=== PATIENT | male | born 1980 | race African-American/Black ===

== ENCOUNTER 2022-07-05 15:48 | Emergency (ER) | payer BC, SELFPAY ==
[2022-07-05] MEDS ORDERED: Bicillin LA 1.2 MILLION UNITS/2 ML SYRINGE IM SCH (16:30)
== END 2022-07-05 16:44 | disposition home or self-care (01) ==
LOC: CSHERS 15:48
DX: J02.0 Streptococcal pharyngitis (principal); I10 Essential (primary) hypertension; K21.9 Gastro-esophageal reflux disease without esophagitis
CPT/HCPCS: 96372; J0561

== ENCOUNTER 2023-06-29 05:27 | Observation (INO) | payer BC ==
[2023-06-29] MEDS ORDERED: Aspirin Chewable 81 MG TAB ONE ×3 (05:46→12:31)
[2023-06-29] MEDS ORDERED: Nitroglycerin 0.4 MG TAB 1 EACH ONE (05:47)
[2023-06-29 06:06] LABS: #Basophils 0.1 10x3/uL (0.0-0.2); #Eosinphils 0.4 10x3/uL (0.0-0.5); #Monocytes 0.6 10x3/uL (0.0-1.1); #Neutrophils 2.2 10x3/uL (1.5-8.4); %Basophils 1.2 % (0.0-2.0); %Lymphocytes 34.7 % (18.0-47.0); %Monocytes 11.3 % (0.0-10.0); %Neutrophils 44.6 % (40.0-75.0); Hematocrit 41.3 % (38.8-50.0); Hemoglobin 13.7 g/dL (13.5-17.5); Mean Corpuscular HGB CONC 33.2 g/dL (32.0-36.0); Mean Corpuscular Hemoglobin 25.8 pg (27.0-33.0); Mean Corpuscular Volume 77.8 fl (81.2-95.1); Mean Platelet Volume 10.7 fl (7.4-10.4); Platelet Count 286 10x3/uL (150-450); RBC Distribution Width 15.9 % (11.5-14.5); Red Blood Cell (RBC) Count 5.31 10x6/uL (4.32-5.72); White Blood Cell (WBC) Count 4.9 10x3/uL (3.5-10.5)
[2023-06-29 06:11] LABS: PTT 27.9 sec (22.0-33.0); Prothrombin Time 10.8 sec (9.5-12.1)
[2023-06-29 06:13] LABS: ALT (SGPT) 35 U/L (8-55); AST (SGOT) 32 U/L (5-34); Albumin 3.9 g/dL (3.5-5.0); Alkaline Phosphatase 81 U/L (40-110); Anion Gap 14 mmol/L (10-20); BUN (Urea Nitrogen) 13 mg/dL (8.9-20.6); Bilirubin, Total 0.5 mg/dL (0.2-1.2); Calc. Creatinine Clearance 0 mL/min (70-130); Calcium 8.9 mg/dL (7.8-10.44); Carbon Dioxide 24 mmol/L (22-29); Chloride 108 mmol/L (98-107); Estimated GFR 86; Glucose 129 mg/dL (70-105); Lipase 25 U/L (8-78); Magnesium 1.7 mg/dL (1.6-2.6); Potassium 3.6 mmol/L (3.5-5.1); Protein, Total 6.9 g/dL (6.0-8.3); Sodium 142 mmol/L (136-145)
[2023-06-29] MEDS ORDERED: Nitroglycerin 0.4 MG TAB (25 Tab Bottle) SL PRN (08:42)
[2023-06-29] MEDS ORDERED: Ondansetron ODT 4 MG TAB PO PRN (08:51)
[2023-06-29] MEDS ORDERED: Ondansetron PF 4 MG/2 ML Vial IVP PRN (08:51)
[2023-06-29] MEDS ORDERED: Enoxaparin 40 MG (0.4 mL) SYRINGE SC SCH (09:30)
[2023-06-29] MEDS ORDERED: Enoxaparin 40 MG (0.4 mL) SYRINGE ONE (12:31)
[2023-06-29] MEDS: Aspirin Chewable 81 MG TAB PO SCH (12:34)
[2023-06-29 13:15] LABS: Cardiac Risk 4.5 (Less than 4.5)
[2023-06-29 15:39] LABS: Troponin I 0.012 ng/mL (< 0.028)
[2023-06-29] MEDS ORDERED: Losartan 50 MG TAB PO SCH (16:45)
[2023-06-29 17:06] LABS: Hemoglobin A1c 6.8 % (4.0-6.0)
[2023-06-29] MEDS ORDERED: Carvedilol 6.25 MG TAB PO SCH (17:15)
[2023-06-29] MEDS ORDERED: Ventolin HFA Inhaler 60 PUFF INHALER INH PRN ×2 (17:21→17:30)
[2023-06-29] MEDS ORDERED: Carvedilol 6.25 MG TAB ONE (17:26)
[2023-06-29] MEDS ORDERED: Atorvastatin Calcium 40 MG TAB ONE (20:43)
[2023-06-29] MEDS ORDERED: Atorvastatin Calcium 40 MG TAB PO SCH (21:00)
[2023-06-30 03:44] LABS: #Basophils 0.1 10x3/uL (0.0-0.2); #Eosinphils 0.3 10x3/uL (0.0-0.5); #Monocytes 0.5 10x3/uL (0.0-1.1); #Neutrophils 2.5 10x3/uL (1.5-8.4); %Basophils 1.7 % (0.0-2.0); %Lymphocytes 29.7 % (18.0-47.0); %Monocytes 9.8 % (0.0-10.0); %Neutrophils 52.6 % (40.0-75.0); Hematocrit 41.9 % (38.8-50.0); Hemoglobin 13.8 g/dL (13.5-17.5); Mean Corpuscular HGB CONC 32.9 g/dL (32.0-36.0); Mean Corpuscular Hemoglobin 25.6 pg (27.0-33.0); Mean Corpuscular Volume 77.6 fl (81.2-95.1); Mean Platelet Volume 10.1 fl (7.4-10.4); Platelet Count 256 10x3/uL (150-450); RBC Distribution Width 15.9 % (11.5-14.5); White Blood Cell (WBC) Count 4.8 10x3/uL (3.5-10.5)
[2023-06-30 04:00] LABS: Anion Gap 11 mmol/L (10-20); BUN (Urea Nitrogen) 12 mg/dL (8.9-20.6); Calc. Creatinine Clearance 0 mL/min (70-130); Calcium 8.7 mg/dL (7.8-10.44); Carbon Dioxide 27 mmol/L (22-29); Cardiac Risk 5.3 (Less than 4.5); Chloride 107 mmol/L (98-107); Cholesterol 169 mg/dl (< 200 Desired); Estimated GFR 80; Glucose 97 mg/dL (70-105); HDL Cholesterol 32 mg/dL (>60 Neg Risk); LDL Cholesterol, Calculated 104 mg/dL; Potassium 3.4 mmol/L (3.5-5.1); Sodium 142 mmol/L (136-145); Triglycerides 165 mg/dL (Less than 150)
[2023-06-30 06:07] VITALS: TEMP 98.1
[2023-06-30] MEDS ORDERED: Potassium Chloride 20 MEQ TAB PO SCH (08:45)
[2023-06-30] MEDS ORDERED: Losartan 50 MG TAB PO SCH (09:00)
[2023-06-30] MEDS ORDERED: Carvedilol 12.5 MG TAB PO SCH (09:00)
[2023-06-30] MEDS ORDERED: Magnesium 2 GM/50 ML(in water) 2 GM in Premix 1 BAG IVPB SCH (09:00)
[2023-06-30] MEDS ORDERED: Aspirin 81 mg Enteric Coated Tablet ONE (09:17)
[2023-06-30] MEDS: Aspirin Chewable 81 MG TAB PO SCH (09:29)
[2023-06-30] MEDS ORDERED: Potassium Chloride 20 MEQ TAB ONE (09:31)
[2023-06-30] MEDS ORDERED: Magnesium 2 GM/50 ML BAG (IN WATER) ONE (09:32)
[2023-06-30 17:24] VITALS: BP 150/95
== END 2023-06-30 19:10 | disposition home or self-care (01) ==
LOC: CSHERS 05:27 → CSHERHOLD 08:45
PROVIDERS: ADMIT Internal Medicine; ATTEND Internal Medicine
PROC: B24BZZZ Ultrasonography of Heart with Aorta (ICD-10-PCS; principal; 2023-06-30)
DX: R07.9 Chest pain, unspecified (principal); I12.9 Hypertensive chronic kidney disease with stage 1 through stage 4 chronic kidney disease, or unspecified chronic kidney disease; I16.0 Hypertensive urgency; J45.909 Unspecified asthma, uncomplicated; E87.6 Hypokalemia; E11.22 Type 2 diabetes mellitus with diabetic chronic kidney disease; E78.5 Hyperlipidemia, unspecified; N18.2 Chronic kidney disease, stage 2 (mild); Z79.899 Other long term (current) drug therapy; Z90.89 Acquired absence of other organs; Z87.891 Personal history of nicotine dependence
CPT/HCPCS: 36415; 71045; 80048; 80053; 80061; 83036; 83690; 83735; 83880; 84443; 84484; 85025; 85610; 85730; 93005; 93306; 94760; 96372; 96374; G0378; J1650; J3475